=== PATIENT | male | born 1990 | race Asian ===

== ENCOUNTER 2019-09-09 19:02 | Emergency (ER) | payer BC, SELFPAY ==
[~2019-09-09] VITALS: Ht 175.3 cm; Wt 70.3 kg
[2019-09-09 19:24] VITALS: BP 115/69
[2019-09-09] MEDS ORDERED: KETOROLAC 30 MG/ML VIAL IM ONE (19:50)
[2019-09-09] MEDS ORDERED: ACETAMINOPHEN EXTRA STRENGTH 500 MG TAB PO ONE (19:50)
[2019-09-09 22:39] LABS: RSV NEGATIVE (NEGATIVE)
[2019-09-09 23:00] VITALS: BP 94/58
== END 2019-09-09 23:03 | disposition home or self-care (01) ==
LOC: MED 19:02 → EEVIPCON 19:02 → MED 23:03
DX: R50.9 Fever, unspecified (principal); Z20.828 Contact with and (suspected) exposure to other viral communicable diseases; M79.10 Myalgia, unspecified site; R51 Headache
CPT/HCPCS: 36415; 71045; 87081; 87420; 87804; 96372; 99284; C9803; J1885; Q0092; U0003